=== PATIENT | female | born 1980 | race Caucasian/White ===

== ENCOUNTER 2017-01-15 13:42 | Emergency (ER) | payer MEDICAID ==
[~2017-01-15] VITALS: Ht 152.4 cm; Wt 67.7 kg
[~2017-01-15 13:42] MED LIST: ACET-62 PO; BUPR-51 PO; GABA-338 PO; LEVO100T12 PO; NAPR550T4 PO; ONDA4TAB4 PO; TRAM50TA4 PO
--- OUTSIDE RECORDS SUMMARY | 2017-01-15 13:47 | XMS REPORT ---
Author Author Milton Blackwood [facility] eClinicalWorks Address Unknown Phone Unavailable Care Team Providers Care Purchasing Analyst Name Role Phone Milton Blackwood CP Unavailable Allergies No Known Allergies Problems Problem Type Condition Code Onset Dates Condition Status Problem Personal history of alcoholism V11.3 Active Problem Pain in joint, shoulder region 719.41 Active Problem Post-traumatic stress disorder, chronic F43.12 Active Problem Alcohol dependence, in remission F10.21 Active Problem Bipolar disorder, current episode manic without psychotic features, moderate F31.12 Active Problem Hypothyroid 244.9 Active Problem Hypercholesterolemia 272.2 Active Medications No Known Medications Results No Known Results Summary Purpose eClinicalWorks Submission
--- OUTSIDE RECORDS SUMMARY | 2017-01-15 13:47 | XMS REPORT ---
Author Author Serg Casas Organization eClinicalWorks Address Unknown Phone Unavailable Care Team Providers Care Hotel Room Attendant Name Role Phone Serg Casas CP Unavailable Allergies No Known Allergies Problems [...]
--- OUTSIDE RECORDS SUMMARY | 2017-01-15 13:48 | XMS REPORT ---
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 Active Problem Personal history of alcoholism V11.3 Active Problem Pain in joint, shoulder region 719.41 Active Problem Post-traumatic stress disorder, chronic F43.12 Active Problem Alcohol dependence, in remission F10.21 Active Problem Bipolar disorder, current episode manic without psychotic features, moderate F31.12 Active Problem Hypothyroid 244.9 Active Problem Hypercholesterolemia 272.2 Active Medications Medication Code System Code Instructions Start Date End Date Status Dosage Tramadol HCl [facility] [address]-18 50 MG Orally every 6 hrs 2 tablet as needed Lamictal [facility] [address]-92 150 MG Orally Once a day Jul 30, 2016 as directed Gabapentin [facility] [address]-35 300 MG Orally Once a day at bedtime 1 capsule BuPROPion HCl (XL) [facility] [address]-23 300 MG Orally Once a day 1 tablet in the morning Aleve [facility] [address]-32 220 MG Orally every 12 hrs 1 tablet as needed Zoloft [facility] [address]-71 25 MG Orally Once a day Aug 31, 2016 1 tablet for 1 week and then 2 tablets every morning for depression/anxiety Prazosin HCl [facility] [address]-79 2 MG Orally once at bedtime for Nighmares/ Anxiety/Sleep Jul 30, 2016 1 capsule Levothroid [facility] [address]-05 100 MCG Orally Once a day March 04, 2014 1 tablet on an empty stomach in the morning Procedures Procedure Coding System Code Date OFFICE VISIT, EST-MOD. COMPLEXITY (25 MIN) CPT-4 82923 Aug 31, 2016 Vital Signs Date/Time: Aug 31, 2016 Temperature 98.9 F Height 60 in Weight 166.4 lbs Blood Pressure Diastolic 80 mm Hg Blood Pressure Systolic 110 mm Hg Cardiac Monitoring Heart Rate 88 /min BMI 32.49 Index Respiratory Rate 20 /min Results No Known Results Summary Purpose eClinicalWorks Submission
--- OUTSIDE RECORDS SUMMARY | 2017-01-15 13:48 | XMS REPORT ---
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 Active Assessment Bipolar disorder, current episode manic without psychotic features , moderate F31.12 Active Assessment Other terminal carman (current) drug therapy Z79.899 Active Problem Personal history of alcoholism V11.3 Active Problem Pain in joint, shoulder region 719.41 Active Problem Post-traumatic stress disorder, chronic F43.12 Active Problem Alcohol dependence, in remission F10.21 Active Problem Bipolar disorder, current episode manic without psychotic features, moderate F31.12 Active Problem Hypothyroid 244.9 Active Problem Hypercholesterolemia 272.2 Active Medications Medication Code System Code Instructions Start Date End Date Status Dosage Lamictal [facility] [address]-71 25 MG Orally Once a day in the AM. increase by 25mg every week until 100mg Jul 30, 2016 as directed BuPROPion HCl (XL) [facility] [address]-86 300 MG Orally Once a day 1 tablet in the morning Levothroid [facility] [address]-48 100 MCG Orally Once a day March 04, 2014 1 tablet on an empty stomach in the morning Prazosin HCl [facility] [address]-61 2 MG Orally once at bedtime for Nighmares/ Anxiety/Sleep Jul 30, 2016 1 capsule Tramadol HCl [facility] [address]-06 50 MG Orally every 6 hrs 2 tablet as needed Gabapentin [facility] [address]-50 300 MG Orally Once a day at bedtime 1 capsule Aleve [facility] [address]-99 220 MG Orally every 12 hrs 1 tablet as needed Procedures Procedure Coding System Code Date OFFICE VISIT, EST-MOD. COMPLEXITY (25 MIN) CPT-4 38478 Jul 30, 2016 Vital Signs Date/Time: Jul 30, 2016 Temperature 99.2 F Height 60 in Weight 170.75 lbs Blood Pressure Diastolic 88 mm Hg Blood Pressure Systolic 120 mm Hg Cardiac Monitoring Heart Rate 92 /min BMI 33.34 Index Respiratory Rate 20 /min Results No Known Results Summary Purpose eClinicalWorks Submission
--- OUTSIDE RECORDS SUMMARY | 2017-01-15 13:48 | XMS REPORT | Continuity of Care Document ---
Author Author [facility] Organization [facility] Address Unknown Phone Unavailable Support Name Relationship Address Phone VICTOR M RIVERA MD Caregiver [address] [place] [address] [place] [address] STU HAMILTON MD Caregiver [address] [place] [address] TEENA ANTUNEZ Next Of Kin Unknown [phone] Insurance Providers Payer Name Policy Number Subscriber Name Relationship Self Pay [place], [place] 17 Self Problems Medical Problems Problem Onset Date Status Influenza A Unknown Active Influenza A Unknown Active Medications Medication Dose Route Sig Days/Qty Instructions Order Date Discontinued Date Status Miscellaneous Information 01/15/13 Active Levothyroxine Sodium 88 Mcg PO BEFORE BREAKFAST Once daily before breakfast. 11/19/14 Active Oseltamivir Phosphate 75 Mg PO TWICE A DAY 10 Qty 11/19/14 Active Social History Social History Problem Response Recorded Date/Time Hx Substance Use No 11/19/2014 11:46am Hx Alcohol Use No 11/19/2014 11:46am Tobacco Usage none 11/19/2014 11:20am Query Response Start Date Stop Date Smoking Status Former smoker Hospital Discharge Instructions No hospital discharge instructions. Plan of Care No plan of care. Functional Status Query Response Date Recorded Physical Hygiene Self November 19, 2014 11:46am Disabilities None November 19, 2014 11:46am Devices Used None November 19, 2014 11:46am Dressing Self November 19, 2014 11:46am Ambulation Self November 19, 2014 11:46am Diet Self November 19, 2014 11:46am Mental Status Alert November 19, 2014 11:48am Disabilities None November 19, 2014 11:46am Devices Used None November 19, 2014 11:46am Physical Hygiene Self November 19, 2014 11:46am Dressing Self November 19, 2014 11:46am Ambulation Self November 19, 2014 11:46am Diet Self November 19, 2014 11:46am Allergies, Adverse Reactions, Alerts Allergen Type Severity Reaction Status Last Updated Penicillin Allergy Severe ANAPHYLACTIC SHOCK Active 11/19/14 Amoxicillin Allergy Intermediate ITCHING Active 10/02/13 Latex Allergy Intermediate rash Active 04/30/13 Immunizations Name Given Type Hx Influenza Vaccination No Historical Hx Pneumococcal Vaccination No Historical Hx Influenza Vaccination No Historical Vital Signs Acute Vital Signs Vital Response Date/Time Temperature (Fahrenheit) 98.4 deg F (96.8 - 99.1) Temperature (Calculated Celsius) 36.88681 degrees C (36.0 - 37.3) Pulse Rate (adult) 88 bpm (60 - 100) Respiratory Rate 20 breaths/min (10 - 20) O2 Sat by Pulse Oximetry 96 % (90 - 100) Blood Pressure 117/70 mm Hg Height 5 ft 0 in Weight 153 lb Body Mass Index 30.0 kg/m^2 Results Test Source Date Result Interp. Ref. Range Comments Alanine Aminotransferase (ALT/SGPT) November 14, 2014 6:09pm 23 U/L N 9- 52 Albumin November 14, 2014 6:09pm 5.1 G/DL H 3.5-5.0 Albumin/Globulin Ratio November 14, 2014 6:09pm 1.5 RATIO N 1.1-2.2 Alkaline Phosphatase November 14, 2014 6:09pm 73 U/L N 38-126 Amylase Level November 14, 2014 6:09pm 85 U/L N 30-110 Anion Gap November 14, 2014 6:09pm 10 MEQ/L N 5-15 Aspartate Amino Transf (AST/SGOT) November 14, 2014 6:09pm 32 U/L N 14- 36 BUN/Creatinine Ratio November 14, 2014 6:09pm 9 RATIO N 6-26 Basophils # (Auto) November 14, 2014 6:09pm 0.1 T/MM3 N 0-0.2 Basophils (%) (Auto) November 14, 2014 6:09pm 0.5 % N 0-2 Blood Urea Nitrogen November 14, 2014 6:09pm 9.0 MG/DL N 7-17 Calcium Level November 14, 2014 6:09pm 9.8 MG/DL N 8.4-10.2 Calculated Osmolality November 14, 2014 6:09pm 274 MOSM/KG N 261-280 Carbon Dioxide Level November 14, 2014 6:09pm 29 MEQ/L N 22-30 Chloride Level November 14, 2014 6:09pm 104 MEQ/L N 98-107 Creatinine November 14, 2014 6:09pm 1.0 MG/DL N 0.7-1.2 Eosinophils # (Auto) November 14, 2014 6:09pm 0.1 T/MM3 N 0-0.5 Eosinophils (%) (Auto) November 14, 2014 6:09pm 0.8 % N 0-4 Globulin November 14, 2014 6:09pm 3.3 G/DL N 2.4-3.6 Glucose Level November 14, 2014 6:09pm 94 MG/DL N 65-110 Group A Streptococcus Screen November 19, 2014 11:25am Negative - Strep culture confirmation to follow Hematocrit November 14, 2014 6:09pm 40.2 % N 36-46 Hemoglobin November 14, 2014 6:09pm 13.5 GM/DL N 12-16 Influenza Type A Antigen November 19, 2014 10:45am Positive - This test can not distinguish influenza A virus subtypes,e.g., seasonal influenza A and novel influenza A (H1N1). Influenza Type B Antigen November 19, 2014 10:45am Negative - Negative for Flu B protein antigen. Assay sensitivity is90%. Lipase January 15, 2013 8:45pm 105 U/L N 23-300 Lymphocytes # (Auto) November 14, 2014 6:09pm 0.9 T/MM3 L 1-4.8 Lymphocytes (%) (Auto) November 14, 2014 6:09pm 7.8 % L 23-45 Mean Corpuscular Hemoglobin November 14, 2014 6:09pm 31.3 UUG N 26-34 Mean Corpuscular Hemoglobin Concent November 14, 2014 6:09pm 33.6 GM/DL N 31-37 Mean Corpuscular Volume November 14, 2014 6:09pm 93.3 UM3 N 80-100 Mean Platelet Volume November 14, 2014 6:09pm 9.7 UM3 N 9.4-12.4 Monocytes # (Auto) November 14, 2014 6:09pm 0.9 T/MM3 H 0-0.8 Monocytes (%) (Auto) November 14, 2014 6:09pm 7.3 % N 0-9.0 Neutrophils # (Auto) November 14, 2014 6:09pm 9.9 T/MM3 H 1.8-7.7 Neutrophils (%) (Auto) November 14, 2014 6:09pm 83.3 % H 33-66 Platelet Count November 14, 2014 6:09pm 289 T/MM3 N 130-400 Potassium Level November 14, 2014 6:09pm 4.0 MEQ/L N 3.6-5 RDW Standard Deviation November 14, 2014 6:09pm 39.8 FL N 36.9-50.2 Red Blood Count November 14, 2014 6:09pm 4.31 M/MM3 N 4.00-5.20 Sodium Level November 14, 2014 6:09pm 143 MEQ/L N 134-144 Total Bilirubin November 14, 2014 6:09pm 1.50 MG/DL H 0.20-1.30 Total Protein November 14, 2014 6:09pm 8.4 G/DL H 6.3-8.2 Urine Bilirubin April 29, 2013 7:07pm Negative - Has specimen been collected/obtained? Y Urine Blood April 29, 2013 7:07pm Negative - Has specimen been collected/obtained? Y Urine Collection Type April 29, 2013 7:07pm Cleancatch-midstream - Has specimen been collected/obtained? Y Urine Color April 29, 2013 7:07pm Yellow - Has specimen been collected /obtained? Y Urine Glucose (UA) April 29, 2013 7:07pm Negative - Has specimen been collected/obtained? Y Urine Ketones April 29, 2013 7:07pm Negative - Has specimen been collected/obtained? Y Urine Leukocyte Esterase April 29, 2013 7:07pm Negative - Has specimen been collected/obtained? Y Urine Nitrite April 29, 2013 7:07pm Negative - Has specimen been collected/obtained? Y Urine Test April 29, 2013 7:07pm Negative - Has specimen been collected/obtained? Y Urine Protein April 29, 2013 7:07pm Negative - Has specimen been collected/obtained? Y Urine Specific [place] April 29, 2013 7:07pm 1.010 L - Has specimen been collected/obtained? Y Urine Turbidity April 29, 2013 7:07pm Clear - Has specimen been collected/obtained? Y Urine Urobilinogen April 29, 2013 7:07pm Normal EU/DL - Has specimen been collected/obtained? Y Urine pH April 29, 2013 7:07pm 7.0 - Has specimen been collected/ obtained? Y White Blood Count November 14, 2014 6:09pm 11.9 T/MM3 H 4.5-11.0 Chemistry Specimen Hemolysis November 14, 2014 6:09pm < 15 0-25 0-25: No Hemolysis.26-70: Slight Hemolysis - can falsely elevate K and Urine Protein. 71-285: Moderate Hemolysis - can falsely elevate K, Troponin I, CA 19-9, PTH, CSF GLucose, and Urine Protein, and can falsely decrease Phenytoin. 286-999: Gross Hemolysis - can falsely elevate K, Troponin I, CA 19-9, PTH, CSF Glucose, and Urine Protine, and can falsely decrease Phenytoin. Recommend specimen recollection. Urinalysis Comment April 29, 2013 7:07pm Microscopic not ind. - Has specimen been collected/obtained? Y Lab Scanned Report November 14, 2014 9:57pm LAB TEST FORM REQUEST [id number] - Turbidity November 14, 2014 6:09pm < 20 0-20 Glomerular Filtration Rate Calc November 14, 2014 6:09pm 63 - Immature Granulocyte # (Auto) November 14, 2014 6:09pm 0.03 T/MM3 N 0.00- 0.03 Immature Granulocyte % (Auto) November 14, 2014 6:09pm 0.3 % N 0.0-0.5 Venous Blood Lactate April 29, 2013 7:53pm 0.8 MMOL/L N 0.6-2.2 Icterus Index November 14, 2014 6:09pm < 2 0-7 Blood Culture Blood April 29, 2013 7:53pm NO GROWTH AFTER 5 DAYS Group A Streptococcus Culture Throat April 29, 2013 8:07pm Urine Culture Urine, Clean Catch-Midstream November 14, 2014 5:51pm Gram Positive Organism Procedures No known history of procedures. Encounters Encounter Location Date/Time Departed Emergency Room [facility] 11/19/14 10:26am Registered Clinic [facility] 11/14/14 6:03pm Recent Diagnosis
--- OUTSIDE RECORDS SUMMARY | 2017-01-15 13:48 | XMS REPORT ---
Author Author Milton Blackwood [facility] eClinicalWorks Address Unknown Phone Unavailable Care Team Providers Care Addiction Treatment Counselor Name Role Phone Milton Blackwood CP Unavailable [...] Instructions Start Date End Date Status Dosage Zoloft [facility] [address]-91 50 MG Orally Once a day Aug 31, 2016 1 tablet Tramadol HCl [facility] [address]-91 50 MG Orally every 6 hrs 2 tablet as needed Lamictal [facility] [address]-78 150 MG Orally Once a day Jul 30, 2016 as directed BuPROPion HCl (XL) [facility] [address]-81 300 MG Orally Once a day 1 tablet in the morning Gabapentin [facility] [address]-84 300 MG Orally Once a day at bedtime 1 capsule Prazosin HCl [facility] [address]-97 2 MG Orally once at bedtime for Nighmares/ Anxiety/Sleep Jul 30, 2016 1 capsule Aleve [facility] [address]-68 220 MG Orally every 12 hrs 1 tablet as needed Levothroid [facility] [address]-87 100 MCG Orally Once a day March 04, 2014 1 tablet on an empty stomach in the morning Procedures Procedure Coding System Code Date OFFICE VISIT, EST-MOD. COMPLEXITY (25 MIN) CPT-4 52624 Sep 22, 2016 Vital Signs Date/Time: Sep 22, 2016 Temperature 97.5 F Height 60 in Weight 166 lbs Blood Pressure Diastolic 80 mm Hg Blood Pressure Systolic 132 mm Hg Cardiac Monitoring Heart Rate 90 /min BMI 32.42 Index Respiratory Rate 20 /min Results No Known Results Summary Purpose eClinicalWorks Submission
--- OUTSIDE RECORDS SUMMARY | 2017-01-15 13:48 | XMS REPORT ---
Author Author Milton Blackwood [facility] eClinicalWorks Address Unknown Phone Unavailable Care Team Providers Care Community Leader Name Role Phone Milton Blackwood CP Unavailable [...]
--- OUTSIDE RECORDS SUMMARY | 2017-01-15 13:48 | XMS REPORT ---
Author Author Milton Blackwood [facility] eClinicalWorks Address Unknown Phone Unavailable Care Team Providers Care Dental Laboratory Manager Name Role Phone Milton Blackwood CP Unavailable [...]
--- OUTSIDE RECORDS SUMMARY | 2017-01-15 13:48 | XMS REPORT ---
Author Author Serg Casas [facility] eClinicalWorks Address Unknown Phone Unavailable Care Team Providers Care Guest Room Inspector Name Role Phone Serg Casas CP Unavailable Allergies, Adverse Reactions, Alerts Substance Reaction Event Type Penicillin anaphylaxis Drug Allergy Seasonal Info Not Available Non Drug Allergy Problems Problem Type Condition Code Onset Dates Condition Status Assessment Encounter for dental examination and cleaning without abnormal findings Z01.20 Active Problem Personal history of alcoholism V11.3 Active Problem Pain in joint, shoulder region 719.41 Active Problem Post-traumatic stress disorder, chronic F43.12 Active Problem Alcohol dependence, in remission F10.21 Active Problem Bipolar disorder, current episode manic without psychotic features, moderate F31.12 Active Problem Hypothyroid 244.9 Active Problem Hypercholesterolemia 272.2 Active Medications Medication Code System Code Instructions Start Date End Date Status Dosage BuPROPion HCl (XL) [facility] [address]-35 300 MG Orally Once a day 1 tablet in the morning Lamictal [facility] [address]-82 150 MG Orally Once a day Jul 30, 2016 as directed Aleve [facility] [address]-67 220 MG Orally every 12 hrs 1 tablet as needed Levothroid [facility] [address]-37 100 MCG Orally Once a day March 04, 2014 1 tablet on an empty stomach in the morning Zoloft [facility] [address]-04 25 MG Orally Once a day Aug 31, 2016 1 tablet for 1 week and then 2 tablets every morning for depression/anxiety Prazosin HCl [facility] [address]-94 2 MG Orally once at bedtime for Nighmares/ Anxiety/Sleep Jul 30, 2016 1 capsule Tramadol HCl [facility] [address]-79 50 MG Orally every 6 hrs 2 tablet as needed Gabapentin [facility] [address]-43 300 MG Orally Once a day at bedtime 1 capsule Procedures Procedure Coding System Code Date INTRAORL - CMPL SERIES CODE 23286 CPT-4 D0210 Sep 01, 2016 COMP ORAL EVALUATION - NEW/EST PT CPT-4 D0150 Sep 01, 2016 Results No Known Results Summary Purpose eClinicalWorks Submission
--- OUTSIDE RECORDS SUMMARY | 2017-01-15 13:48 | XMS REPORT | Continuity of Care Document ---
Author Author [facility] Organization [facility] Address Unknown Phone Unavailable Support Name Relationship Address Phone TE MARINO MD Caregiver [address] [place] [address] [place] [address] TEENA ANTUNEZ Next Of Kin Unknown [phone] Insurance Providers Payer Name Policy Number Subscriber Name Relationship Kristal [employer] [id number] [place]y [place] 17 Self Problems Medical Problems Problem Onset Date Status Influenza A Unknown Active Influenza A Unknown Active Sinusitis Unknown Active Medications Medication Dose Route Sig Days/Qty Instructions Order Date Discontinued Date Status Levothyroxine Sodium 88 Mcg PO BEFORE BREAKFAST Once daily before breakfast. 11/19/14 Active Oseltamivir Phosphate 75 Mg PO TWICE A DAY 10 Qty 11/19/14 Active Prednisone 20 Mg PO DIRECTED 18 Qty Take 2 pills for 3 days THEN, Active Promethazine HCl/Codeine 5 Ml PO Every 6 Hours PRN COUGH 100 Qty Active Azithromycin 1 Pack PO DIRECTED 1 Qty 11/26/14 Active Benzonatate 1-2 Tab PO Every 8 Hours For COUGH 20 Qty 11/26/14 Active Fexofenadine HCl 1 Tab PO DAILY 10 Days Do not drink Apple, [place], or Grapefruit juice within 4 11/26/14 Active Social History Social History Problem Response Recorded Date/Time Hx Substance Use No 11/26/2014 10:20pm Hx Alcohol Use No 11/26/2014 10:20pm Tobacco Usage none 11/19/2014 11:20am Query Response Start Date Stop Date Smoking Status Unknown if ever smoked Hospital Discharge Instructions No hospital discharge instructions. Plan of Care No plan of care. Functional Status Query Response Date Recorded Physical Hygiene Self November 26, 2014 10:20pm Disabilities None November 26, 2014 10:20pm Devices Used None November 26, 2014 10:20pm Dressing Self November 26, 2014 10:20pm Ambulation Self November 26, 2014 10:20pm Diet Self November 26, 2014 10:20pm Mental Status Alert November 26, 2014 11:06pm Disabilities None November 26, 2014 10:20pm Devices Used None November 26, 2014 10:20pm Physical Hygiene Self November 26, 2014 10:20pm Dressing Self November 26, 2014 10:20pm Ambulation Self November 26, 2014 10:20pm Diet Self November 26, 2014 10:20pm Allergies, Adverse Reactions, Alerts Allergen Type Severity Reaction Status Last Updated Penicillin Allergy Severe ANAPHYLACTIC SHOCK Active 11/26/14 Amoxicillin Allergy Intermediate ITCHING Active 11/26/14 Latex Allergy Intermediate rash Active 11/26/14 Immunizations Name Given Type Hx Influenza Vaccination No Historical Hx Pneumococcal Vaccination No Historical Hx Influenza Vaccination No Historical Vital Signs Acute Vital Signs Vital Response Date/Time Temperature (Fahrenheit) 97.5 deg F (96.8 - 99.1) Temperature (Calculated Celsius) 36.62102 degrees C (36.0 - 37.3) Pulse Rate (adult) 81 bpm (60 - 100) Respiratory Rate 20 breaths/min (10 - 20) O2 Sat by Pulse Oximetry 98 % (90 - 100) Blood Pressure 129/88 mm Hg Height 5 ft 0 in Weight 147 lb Body Mass Index 28.0 kg/m^2 Results Test Source Date Result Interp. [...] Has specimen been collected/obtained? Y Urine Specific [place] April 29, 2013 7:07pm 1.010 L - [...] 14, 2014 9:57pm LAB TEST FORM REQUEST [id number] - Turbidity November 14, 2014 6:09pm < [...] 5 DAYS Group A Streptococcus Culture Throat November 19, 2014 11:42am Urine Culture Urine, Clean Catch-Midstream November 14, 2014 5:51pm Gram Positive Prashanth Procedures Procedure Status Date Provider(s) ROUTINE VENIPUNCTURE completed 11/14/14 COMPREHEN METABOLIC PANEL completed 11/14/14 ASSAY OF AMYLASE completed 11/14/14 COMPLETE CBC W/AUTO DIFF WBC completed 11/14/14 URINE CULTURE/COLONY COUNT completed 11/14/14 INFLUENZA A/B AG EIA completed 11/19/14 STREP A AG EIA completed 11/19/14 EMERGENCY DEPT VISIT completed 11/19/14 Encounters Encounter Location Date/Time Departed Emergency Room [facility] 11/26/14 7:06pm Departed Emergency Room [facility] 11/19/14 10:26am Registered Clinic [facility] 11/14/14 6:03pm Recent Diagnosis
--- OUTSIDE RECORDS SUMMARY | 2017-01-15 13:48 | XMS REPORT ---
Author Author Milton Blackwood [facility] eClinicalWorks Address Unknown Phone Unavailable Care Team Providers Care Lime Kiln Operator Name Role Phone Milton Blackwood CP Unavailable [...]
--- OUTSIDE RECORDS SUMMARY | 2017-01-15 13:48 | XMS REPORT ---
Author Author Serg Casas [facility] eClinicalWorks Address Unknown Phone Unavailable Care Team Providers Care Clearance Rep Name Role Phone Serg Casas CP Unavailable [...] Date End Date Status Dosage Tramadol HCl [facility] [address]-11 50 MG Orally every 6 hrs 2 tablet as needed Hydrocodone-Acetaminophen [facility] [address]-56 7.5-325 MG Orally every 4-6 hrs p.r.n. for Sep 17, 2016 1 tablet as needed Gabapentin [facility] [address]-76 300 MG Orally Once a day at bedtime 1 capsule Levothroid [facility] [address]-13 100 MCG Orally Once a day March 04, 2014 1 tablet on an empty stomach in the morning Aleve [facility] [address]-86 220 MG Orally every 12 hrs 1 tablet as needed Prazosin HCl [facility] [address]-56 2 MG Orally once at bedtime for Nighmares/ Anxiety/Sleep Jul 30, 2016 1 capsule Zoloft [facility] [address]-25 25 MG Orally Once a day Aug 31, 2016 1 tablet for 1 week and then 2 tablets every morning for depression/anxiety Lamictal [facility] [address]-20 150 MG Orally Once a day Jul 30, 2016 as directed BuPROPion HCl (XL) [facility] [address]-68 300 MG Orally Once a day 1 tablet in the morning Procedures Procedure Coding System Code Date OV OBS - NO OTH SRVC PRFRM SEE CPT CPT-4 D9430 Sep 15, 2016 Results No Known Results Summary Purpose eClinicalWorks Submission
--- OUTSIDE RECORDS SUMMARY | 2017-01-15 13:48 | XMS REPORT ---
Author Author Serg Casas [facility] Address [address], [place] [id number] Care Team Providers Care Custom Car Builder Name Role Phone Serg Casas Unavailable [phone] PROBLEMS Type Condition ICD9-CM Code [id number] Code Onset Dates Condition Status SNOMED Code Problem Bipolar disorder, current episode manic without psychotic features, moderate F31.12 Active 360991177 Problem Post-traumatic stress disorder, chronic F43.12 Active 78514096 Problem Personal history of alcoholism V11.3 Active 924196344 Problem Hypercholesterolemia 272.2 Active 17636093 Problem Alcohol dependence, 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
--- OUTSIDE RECORDS SUMMARY | 2017-01-15 13:48 | XMS REPORT ---
Author Author Milton Blackwood [facility] eClinicalWorks Address Unknown Phone Unavailable Care Team Providers Care Leather Finisher Name Role Phone Milton Blackwood CP Unavailable [...] Instructions Start Date End Date Status Dosage Gabapentin [facility] [address]-17 300 MG Orally Once a day at bedtime 1 capsule Results No Known Results Summary Purpose eClinicalWorks Submission
--- OUTSIDE RECORDS SUMMARY | 2017-01-15 13:48 | XMS REPORT | Continuity of Care Document ---
Author Author LILIYA [facility] Organization [facility] Address Unknown Phone Unavailable Care Team Providers Care Construction Flagger Name Role Phone DANIEL DONAHUE DO Primary Care Physician [phone] Insurance Providers Guarantor Chey Bosch Address [address] [place] [address] Email DENIED/NO TO PT [facility] Policy Number [id number] Subscriber's Name Chey Bosch Relationship 18 Self Effective Date 16 Expiration Date 16 Advance Directives Directive Response Recorded Date/Time Advanced Directives Type None 07/17/16 1:18pm Chief Complaint and Reason for Visit Chief Complaint Nausea,Vomiting,Diarrhea Reason for Visit [id number] Problems Active Problems Medical Problem Onset Date Status Abdominal pain Unknown Acute Acute drug withdrawal syndrome Unknown Acute Constipation Unknown Acute Diarrhea Unknown Acute Diarrhea Unknown Acute Fibromyalgia Unknown Acute Headache Unknown Acute Headache Unknown Acute Influenza A Unknown Acute Influenza A Unknown Acute Sinusitis Unknown Acute Sinusitis Unknown Acute Past Problems Medical Problem Onset Date Migraine Unknown Viral syndrome Unknown Medications Current Home Medications Medication Dose Units Route Directions Days Qty Instructions Start Date Acetaminophen 500 Mg Tablet 1,000 Mg Oral Every 8 Hours as needed for Pain 07/17/16 Bupropion Hcl (Bupropion Xl) 150 Mg Tab.er.24h 150 Mg Oral Daily 07/17/16 Gabapentin 300 Mg Capsule 300-600 Mg Oral Bedtime 06/03/16 Levothyroxine Sodium 100 Mcg Tablet 100 Mcg Oral Before Breakfast 07/17/16 Naproxen Sodium 550 Mg Tablet 1 Tab Oral Twice A Day as needed for Pain 30 Tablet 07/17/16 Ondansetron Hcl (Zofran) 4 Mg Tablet 4 Mg Oral Every 6 Hours for Nausea 10 Tablet 07/17/16 Tramadol Hcl 50 Mg Tablet 50 Mg Oral Four Times Daily 03/05/16 Past Home Medications Medication Directions Ordered Status Levothyroxine Sodium 88 Mcg Tablet, 88 Mcg Oral Before Breakfast 11/19/14 Discontinued Social History Social History Problem Response Recorded Date/Time Onset Date Status Chewing Tobacco Status No 07/17/2016 1:18pm Not Applicable Not Applicable Hx Substance Use No 07/17/2016 1:18pm Not Applicable Not Applicable Hx Alcohol Use No 07/17/2016 1:18pm Not Applicable Not Applicable Tobacco Usage none 11/19/2014 11:20am Not Applicable Not Applicable Query Response Start Date Stop Date Smoking Status Former smoker Hospital Discharge Instructions No hospital discharge instructions. Plan of Care Discharge Date 07/17/16 4:52pm Disposition 01 DISCHARGED HOME, SELF-CARE Condition at Discharge Stable Instructions/Education Provided DI for Viral Syndrome Prescriptions See Medication Section Referrals DANIEL DONAHUE DO Order Date: 1 Week Address: [address] [address] Note: Additional Instructions/Education WE ARE UNABLE TO DETERMINE THE EXACT CAUSE OF YOUR SYMPTOMS; YOU MAY HAVE A VIRAL SYNDROME THAT WILL NEED TO JUST RUN ITS COURSE. REST AND DRINK PLENTY OF FLUIDS. USE MEDICATION PRESCRIBED FOR PAIN AND NAUSEA. FOLLOW UP WITH YOUR DOCTOR OR YOUR RETURN TO THE ER IF NEEDED. Functional Status No functional status results. Allergies, Adverse Reactions, Alerts Allergen Type Severity Reaction Status Last Updated Penicillin Allergy Severe ANAPHYLACTIC SHOCK Active 07/17/16 Amoxicillin Allergy Intermediate ITCHING Active 07/17/16 Latex Allergy Intermediate rash Active 07/17/16 Immunizations Query Response on File Recorded Date/Time Hx Influenza Vaccination No 07/23/15 9:03am Hx Pneumococcal Vaccination No 07/23/15 9:03am Hx Influenza Vaccination No 07/23/15 9:03am Vital Signs Acute Vital Signs Vital Response Date/Time Temperature (Fahrenheit) 97.6 deg F (96.8 - 99.1) 07/17/2016 4:52pm Temperature (Calculated Celsius) 36.38535 degrees C (36.0 - 37.3) 07/17/2016 4:52pm Pulse Rate (adult) 89 bpm (60 - 100) 07/17/2016 4:52pm Respiratory Rate 16 breaths/min (10 - 20) 07/17/2016 4:52pm O2 Sat by Pulse Oximetry 97 % (90 - 100) 07/17/2016 4:52pm Blood Pressure 116/78 mm Hg 07/17/2016 4:52pm Height (Feet) 5 feet 07/17/2016 1:18pm Height (Inches) 0 inches 07/17/2016 1:18pm Weight (Kilograms) 79.000 kg 07/17/2016 1:18pm Body Mass Index (BMI) 34.0 07/17/2016 1:18pm Results Laboratory Results Test Name Result Units Flags Reference Collection Date/Time Result Date/ Time Comments White Blood Count 9.3 T/MM3 4.5-11.0 07/17/2016 2:35pm 07/17/2016 2: 41pm Red Blood Count 4.55 M/MM3 4.00-5.20 07/17/2016 2:35pm 07/17/2016 2: 41pm Hemoglobin 13.7 GM/DL 12-16 07/17/2016 2:35pm 07/17/2016 2:41pm Hematocrit 40.9 % 36-46 07/17/2016 2:35pm 07/17/2016 2:41pm Mean Corpuscular Volume 89.9 UM3 80-100 07/17/2016 2:35pm 07/17/2016 2: 41pm Mean Corpuscular Hemoglobin 30.1 UUG 26-34 07/17/2016 2:35pm 2015 2:41pm Mean Corpuscular Hemoglobin Concent 33.5 GM/DL 31-37 07/17/2016 2:35pm 07/17/2016 2:41pm RDW Standard Deviation 38.8 FL 36.9-50.2 07/17/2016 2:35pm 07/17/2016 2 :41pm Platelet Count 324 T/MM3 130-400 07/17/2016 2:35pm 07/17/2016 2:41pm Mean Platelet Volume 9.6 UM3 9.4-12.4 07/17/2016 2:35pm 07/17/2016 2: 41pm Neutrophils (%) (Auto) 69.7 % H 33-66 07/17/2016 2:35pm 07/17/2016 2: 41pm Lymphocytes (%) (Auto) 19.7 % L 23-45 07/17/2016 2:35pm 07/17/2016 2: 41pm Monocytes (%) (Auto) 8.8 % 0-9.0 07/17/2016 2:35pm 07/17/2016 2:41pm Eosinophils (%) (Auto) 1.3 % 0-4 07/17/2016 2:35pm 07/17/2016 2:41pm Basophils (%) (Auto) 0.4 % 0-2 07/17/2016 2:35pm 07/17/2016 2:41pm Immature Granulocyte % (Auto) 0.1 % 0.0-0.5 07/17/2016 2:35pm 2015 2:41pm Absolute Neutrophils (auto) 6.5 T/MM3 1.8-7.7 07/17/2016 2:35pm 2015 2:41pm Absolute Lymphocytes (auto) 1.8 T/MM3 1-4.8 07/17/2016 2:35pm 2015 2:41pm Absolute Monocytes (auto) 0.8 T/MM3 0-0.8 07/17/2016 2:35pm 07/17/2016 2:41pm Absolute Eosinophils (auto) 0.1 T/MM3 0-0.5 07/17/2016 2:35pm 2015 2:41pm Absolute Basophils (auto) 0.0 T/MM3 0-0.2 07/17/2016 2:35pm 07/17/2016 2:41pm Absolute Immature Granulocyte (auto 0.01 T/MM3 0.00-0.03 07/17/2016 2: 35pm 07/17/2016 2:41pm Icterus Index < 2 0-7 07/17/2016 2:35pm 07/17/2016 2:51pm Chemistry Specimen Hemolysis < 15 0-25 07/17/2016 2:35pm 07/17/2016 2 :51pm 0-25: Specimen Exhibited No Hemolysis. Turbidity < 20 0-20 07/17/2016 2:35pm 07/17/2016 2:51pm Sodium Level 142 MEQ/L 134-144 07/17/2016 2:35pm 07/17/2016 2:51pm Potassium Level 3.8 MEQ/L 3.6-5 07/17/2016 2:35pm 07/17/2016 2:51pm Chloride Level 101 MEQ/L 98-107 07/17/2016 2:35pm 07/17/2016 2:51pm Carbon Dioxide Level 28 MEQ/L 22-30 07/17/2016 2:35pm 07/17/2016 2: 51pm Anion Gap 13 MEQ/L 5-15 07/17/2016 2:35pm 07/17/2016 2:51pm Blood Urea Nitrogen 10.0 MG/DL 7-07/17/2016 2:35pm 07/17/2016 2: 51pm Creatinine 0.9 MG/DL 0.7-1.2 07/17/2016 2:35pm 07/17/2016 2:51pm BUN/Creatinine Ratio 11 RATIO 607/17/2016 2:35pm 07/17/2016 2:51pm Glomerular Filtration Rate Calc 71 07/17/2016 2:35pm 07/17/2016 2: 51pm Glucose Level 97 MG/DL 65-110 07/17/2016 2:35pm 07/17/2016 2:51pm Calculated Osmolality 272 MOSM/KG 261-280 07/17/2016 2:35pm 07/17/2016 2:51pm Calcium Level 9.4 MG/DL 8.4-10.2 07/17/2016 2:35pm 07/17/2016 2:51pm Total Bilirubin 1.00 MG/DL 0.20-1.30 07/17/2016 2:35pm 07/17/2016 2: 51pm Alkaline Phosphatase 86 U/L 38-126 07/17/2016 2:35pm 07/17/2016 2:51pm Total Protein 7.9 G/DL 6.3-8.2 07/17/2016 2:35pm 07/17/2016 2:51pm Albumin 4.4 G/DL 3.5-5.0 07/17/2016 2:35pm 07/17/2016 2:51pm Globulin 3.5 G/DL 2.4-3.6 07/17/2016 2:35pm 07/17/2016 2:51pm Albumin/Globulin Ratio 1.3 RATIO 1.1-2.2 07/17/2016 2:35pm 07/17/2016 2 :51pm Aspartate Amino Transf (AST/SGOT) 29 U/L 14-36 07/17/2016 2:35pm 2015 2:51pm Alanine Aminotransferase (ALT/SGPT) 17 U/L 9-52 07/17/2016 2:35pm 07/17 2:51pm Urine Collection Type VOIDED-NOT CC-MIDSTR 07/17/2016 2:37pm 2015 2:54pm Urine Color YELLOW YELLOW 07/17/2016 2:37pm 07/17/2016 2:54pm Urine Turbidity CLEAR CLEAR 07/17/2016 2:37pm 07/17/2016 2:54pm Urine Specific [place] 1.020 1.015-1.025 07/17/2016 2:37pm 2015 2:54pm Urine pH 6.0 5.0-8.0 07/17/2016 2:37pm 07/17/2016 2:54pm Urine Leukocyte Esterase NEGATIVE NEGATIVE 07/17/2016 2:37pm 2015 2:54pm Urine Nitrite NEGATIVE NEGATIVE 07/17/2016 2:37pm 07/17/2016 2:54pm Urine Protein NEGATIVE NEGATIVE 07/17/2016 2:37pm 07/17/2016 2:54pm Urine Glucose (UA) NEGATIVE NEGATIVE 07/17/2016 2:37pm 07/17/2016 2: 54pm Urine Ketones NEGATIVE NEGATIVE 07/17/2016 2:37pm 07/17/2016 2:54pm Urine Urobilinogen 0.2 EU/DL NORMAL 07/17/2016 2:37pm 07/17/2016 2: 54pm Urine Bilirubin NEGATIVE NEGATIVE 07/17/2016 2:37pm 07/17/2016 2: 54pm Urine Blood NEGATIVE NEGATIVE 07/17/2016 2:37pm 07/17/2016 2:54pm Urinalysis Comment MICROSCOPIC NOT IND. 07/17/2016 2:37pm 2015 2:54pm Procedures Procedure Status Date Provider(s) METABOLIC PANEL TOTAL CA Completed 06/03/16 COMPLETE CBC W/AUTO DIFF WBC Completed 06/03/16 ELECTROCARDIOGRAM TRACING Completed 06/03/16 HYDRATE IV INFUSION ADD-ON Completed 06/03/16 THER/PROPH/DIAG INJ IV PUSH Completed 06/03/16 TX/PRO/DX INJ NEW DRUG ADDON Completed 06/03/16 TX/PRO/DX INJ NEW DRUG ADDON Completed 06/03/16 EMERGENCY DEPT VISIT Completed 06/03/16030699"INJECTION, PROCHLORPERAZINE, UP TO 10 MG" Completed 06/03/16"INJECTION, DIPHENHYDRAMINE HCL, UP TO 50 MG" Completed 06/03/16"INJECTION, LORAZEPAM, 2 MG" Completed 06/03/16"INFUSION, NORMAL SALINE SOLUTION , 1000 CC" Completed 06/03/16 Encounters Encounter Location Arrival/Admit Date Discharge/Depart Date Attending Provider Departed Emergency Room [facility] 07/17/16 1:17pm 07/17/16 4: 52pm VICTOR M RIVERA MD Departed Emergency Room [facility] 06/03/16 5:54pm 06/03/16 9: 24pm ARUN LANE DO Recent Diagnosis
--- OUTSIDE RECORDS SUMMARY | 2017-01-15 13:48 | XMS REPORT ---
Author Author Milton Blackwood [facility] eClinicalWorks Address Unknown Phone Unavailable Care Team Providers Care Roof Technician Name Role Phone Milton Blackwood CP Unavailable Allergies No Known Allergies Problems Problem Type Condition Code Onset Dates Condition Status Assessment Other long-term (current) drug therapy Z79.899 Active Problem Personal [...] Start Date End Date Status Dosage Lamictal [facility] [address]-79 25 MG Orally Once a day in the AM. increase by 25mg every week until 100mg Jul 30, 2016 as directed Gabapentin [facility] [address]-36 300 MG Orally Once a day at bedtime 1 capsule Aleve [facility] [address]-15 220 MG Orally every 12 hrs 1 tablet as needed Prazosin HCl [facility] [address]-48 2 MG Orally once at bedtime for Nighmares/ Anxiety/Sleep Jul 30, 2016 1 capsule Tramadol HCl [facility] [address]-42 50 MG Orally every 6 hrs 2 tablet as needed BuPROPion HCl (XL) [facility] [address]-17 300 MG Orally Once a day 1 tablet in the morning Levothroid [facility] [address]-62 100 MCG Orally Once a day March 04, 2014 1 tablet on an empty stomach in the morning Procedures Procedure Coding System Code Date T4 FREE CPT-4 27088 Aug 04, 2016 TSH CPT-4 22130 Aug 04, 2016 COMPLETE CBC W/AUTO DIFF WBC CPT-4 73024 Aug 04, 2016 IH LIPID PANEL CPT-4 38712 Aug 04, 2016 IH CMP CPT-4 52781 Aug 04, 2016 Results No Known Results Summary Purpose eClinicalWorks Submission
[2017-01-15 13:50] VITALS: Ht 152.4 cm; Wt 67.7 kg
[2017-01-15] MEDS ORDERED: BUPR300T59 PO (14:28)
[2017-01-15] MEDS ORDERED: ASPI1TAB7 PO (14:29)
[2017-01-15] MEDS ORDERED: NORMAL SALINE 1,000 ML IV ONE (14:45)
[2017-01-15] MEDS ORDERED: KETOROLAC 30mg/ml INJECTION IV ONE (14:45)
[2017-01-15] MEDS ORDERED: ONDANSETRON 4mg/2ml INJECTION IV ONE (14:45)
[2017-01-15] MEDS ORDERED: DIHYDROERGOTAMINE 1 MG/ML IV ONE (14:45)
[2017-01-15] MEDS ORDERED: LORAZEPAM 2 MG/ML INJECTION IV ONE (14:45)
[2017-01-15] MEDS ORDERED: PROCHLORPERAZINE 10mg/2ml INJECTION IV ONE (14:45)
--- NOTE | 2017-01-15 14:45 | ERPDOC ---
Departure Disposition Decision Date: Jan 15, 2017 Disposition Decision Time: 14:49 Disposition: 01 DISCHARGED HOME, SELF-CARE Impression Impression Impression: Primary Impression: Migraine Additional Impression: Nausea Severity: Moderate Condition: Stable Seen By: Physician only Referrals: DANIEL DONAHUE DO (PCP) Patient Instructions: Acute Headache (ED) Problems/Meds/Labs Reviewed?: Yes Medications reviewed and manag: Yes Additional Instructions: Follow-up with her primary care provider if needed. If symptoms worsen certainly , please return to the emergency department. Follow up care ordered?: Yes Mental Status: Alert HPI - Headache General Chief Complaint: Headache Stated Complaint: MIGRAINE,VOMITING,LIGHT HEADED,BLURRY VISION Time Seen by Provider: 14:43 HPI - Headache Initial Comments 36-year-old female with migraine headache. Patient used to get them fairly frequently, was able to go for a while now, several months without getting one. She'll usually take Excedrin Migraine when she gets a migraine, she tried it did not help with this one. She does have photophobia, nausea, did throw up earlier today. Headache is 8 out of 10. She denies any neuro symptoms beyond the headache and photophobia. Allergies: Coded Allergies: Penicillins (Verified Allergy, Severe, ANAPHYLACTIC SHOCK, 01/15/17) amoxicillin (Verified Allergy, Intermediate, ITCHING, 01/15/17) latex (Verified Allergy, Intermediate, rash, 01/15/17) Past History Past Medical History Metabolic: hypercholesterolemia Neurological: migraines Psychological: other Surgical History General: appendix, gallbladder, tonsils Reproductive/: hysterectomy Family History Family PMH: FOUND: [place], [place] Vaccines Hx Influenza Vaccination: No Hx Pneumococcal Vaccination: No Social History Substance Use Type: does not use Marital Status: Single, In a relationship Sexuality: male partner Housing: house Household Members: significant other Record Review Pertinent history updated: Yes Review of Systems Eyes Vision: see HPI Neurological General: see HPI All other Systems All Other Systems: Reviewed and Negative Physical Exam General General Nourishment: well nourished, well developed, appears stated age Distress Description Covering eyes, laying back with headache. Vitals and Pain First Documented Vital Signs Date Time Temp Pulse Resp B/P Pulse Ox O2 Delivery O2 Flow Rate FiO2 01/15/17 13:50 98.8 106 18 142/86 99 Room Air Weight: Kilograms: 67.700 Height (feet): 5 Height (inches): 0 Triage Pain Scale: Normal Exams: Head: Normocephalic w/o trauma Neck: Full range of motion, without adenopathy, JVD, bruits or thyromegaly Chest/Resp: Clear all villasenor, with good airflow, and symmetry bilaterally CV: Regular rate and rhythm, without murmur or gallop, Pulses 2+ all extremities, capillary refill, <2 seconds all ext., no pedal edema noted Abdomen: Bowel sounds positive, soft, non-tender, non-distended, no hepatosplenomegaly, masses or bruits noted Neurologic: Patient is alert, and oriented, cranial nerves, motor/sensory/ cerebellar, exams w/o gross deficits, to observation Psychiatric: Patient exhibits, appropriate attention, emotion and affect Differential Diagnoses Considering: Encephalitis, Headache, Headache - Migraine, Headache - Tension/ Muscle, Hypertensive Emergency, Sub-arachnoid Hemorrhage, Temporal Arteritis, Trigeminal Neuralgia, Viral Syndrome, Vomiting Progress Results/Orders Orders Procedure Category Date Status Time Iv Lock (Ed Only) EDM 01/15/17 Transmitted 14:45 Normal Saline (Normal PHA 01/15/17 Complete Saline Iv) 14:45 Ketorolac (Toradol) PHA 01/15/17 Complete 14:45 Dihydroergotamine PHA 01/15/17 Complete (Dhe) 14:45 Ondansetron Inj PHA 01/15/17 Complete (Zofran) 14:45 Prochlorperazine PHA 01/15/17 Complete (Compazine) 14:45 Lorazepam (Ativan) PHA 01/15/17 Complete 14:45 Medications Current ED Medications Sodium Chloride (Normal Saline IV) 1,000 ml @ 0 mls/hr Q0M ONCE IV Last administered on 01/15/17 15:16; Start 01/15/17 at 14:45; Stop 01/15/17 at 14:49 ; Status DC Ketorolac Tromethamine (Toradol) 30 mg O ONCE IV Last administered on 15:19; Start 01/15/17 at 14:45; Stop 01/15/17 at 14:49; Status DC Dihydroergotamine Mesylate (Dhe) 1 mg O ONCE IV Last administered on 15:20; Start 01/15/17 at 14:45; Stop 01/15/17 at 14:49; Status DC Ondansetron HCl (Zofran) 4 mg O ONCE IV Last administered on 01/15/17t 15:17; Start 01/15/17 at 14:45; Stop 01/15/17 at 14:49; Status DC Prochlorperazine Edisylate (Compazine) 10 mg O ONCE IV Last administered on t 15:21; Start 01/15/17 at 14:45; Stop 01/15/17 at 14:49; Status DC Lorazepam (Ativan) 0.5 mg O ONCE IV ; Start 01/15/17 at 14:45; Stop 01/15/17 at 14:49; Status DC Progress Progress IV fluid 1 L normal saline, Zofran 4 mg IV, Toradol 30 mg IV, Compazine 10 mg IV , DHE 1 mg IV, Ativan 0.5 mg IV. Patient will follow-up with PCP as needed. JUAN MIGUEL WADDELL MD Jan 15, 2017 14:45 JUAN MIGUEL WADDELL MD Jan 15, 2017 14:45
--- NOTE | 2017-01-15 15:28 | NUR ---
PHYSICIAN DR. WADDELL AT BEDSIDE.
--- NOTE | 2017-01-15 15:38 | NUR ---
STATUS PT STATES SHE IS FEELING MUCH BETTER AND REFUSES THE LAST MEDICATION RX'D AND STATES IS READY TO GO HOME
[2017-01-15 15:46] VITALS: BP 142/86; PULSE 106; RESP 18; TEMP 98.8; O2SAT 99
--- OUTSIDE RECORDS SUMMARY | 2017-01-15 15:54 | XMS REPORT | Continuity of Care Document ---
Author Author [facility] Organization [facility] Address Unknown Phone Unavailable Support Name Relationship Address Phone VICTOR M RIVERA MD Caregiver [address] [place] [address] [place] [address] STU HAMILTON MD Caregiver [address] [place] [address] TEENA ANTUNEZ Next Of Kin Unknown [phone] Insurance Providers Payer Name Policy Number Subscriber Name Relationship Self Pay [place], [place] 18 Self Problems Medical Problems Problem [...] F (96.8 - 99.1) Temperature (Calculated Celsius) 36.61112 degrees C (36.0 - 37.3) Pulse Rate [...] Has specimen been collected/obtained? Y Urine Specific [place] April 29, 2013 7:07pm 1.010 L - [...] 14, 2014 9:57pm LAB TEST FORM REQUEST [id number] - Turbidity November 14, 2014 6:09pm < [...] Encounters Encounter Location Date/Time Departed Emergency Room [facility] 11/19/14 10:26am Registered Clinic [facility] 11/14/14 6:03pm Recent Diagnosis
--- OUTSIDE RECORDS SUMMARY | 2017-01-15 15:55 | XMS REPORT | Continuity of Care Document ---
Author Author Gabe [facility] Organization [facility] Address Unknown Phone Unavailable Support Name Relationship Address Phone TE MARINO MD Caregiver [address] [place] [address] [place] [address] TEENA ANTUNEZ Next Of Kin Unknown [phone] Insurance Providers Payer Name Policy Number Subscriber Name Relationship Kristal [employer] [id number] Chey Bosch 17 Self Problems Medical Problems [...] DAILY 10 Days Do not drink Apple, [place], or Grapefruit juice within 4 11/26/14 Active [...] F (96.8 - 99.1) Temperature (Calculated Celsius) 36.54954 degrees C (36.0 - 37.3) Pulse Rate [...] Has specimen been collected/obtained? Y Urine Specific [place] April 29, 2013 7:07pm 1.010 L - [...] 14, 2014 9:57pm LAB TEST FORM REQUEST [id number] - Turbidity November 14, 2014 6:09pm < [...] Encounters Encounter Location Date/Time Departed Emergency Room [facility] 11/26/14 7:06pm Departed Emergency Room [facility] 11/19/14 10:26am Registered Clinic [facility] 11/14/14 6:03pm Recent Diagnosis
== END 2017-01-15 15:46 | disposition home or self-care (01) ==
LOC: ED 13:42
DX: G43.909 Migraine, unspecified, not intractable, without status migrainosus (principal)
CPT/HCPCS: 96374; 96375; 99284; J0780; J1110; J1885; J2405; J7030